=== PATIENT | male | born 1965 | race Caucasian/White ===

== ENCOUNTER → 2017-08-06 | Outpatient (CLI) | payer OTHER ==
[~2017-08-06] MED LIST: DOC100 PO; IBUP-56 PO; OXYC-717 PO
--- NOTE | 2017-08-12 22:22 | RT STRESS TEST REPORT ---
[place] [facility] [place]: ЮЛИЯ ARAIZA : [id number] MR: [id number]: [id number] EXAM DATE: ORDERING PHYSICIAN: KIERA ELLIS TECHNOLOGIST: [employer] Time: 2017-08-06 07:28:09 Total Exercise Time: 00:07:00 Test Indications: Chest Pain / Discomfort Medications: Protocol: COMLY/BRUCE2 Max HR: 151 BPM 90% of Pred: 167 BPM Max BP: 162/076 mmHG Max Work Load: 11.4 METS see written report Confirmed by NELY SUMMERS ([id number]) on 08/12/2017 10:20:37 PM Referred By: Overread By: NELY SUMMERS
== END ==
LOC: RESP 06:41
PROVIDERS: ATTEND Family Medicine
DX: R07.2 Precordial pain (principal)
CPT/HCPCS: 93017